=== PATIENT | female | born 1995 | race Caucasian/White ===

== ENCOUNTER 2017-02-27 16:05 | Outpatient (CLI) | payer MEDICAID ==
[~2017-02-27] VITALS: Ht 172.7 cm; Wt 83.2 kg
[~2017-02-27 16:05] MED LIST: CEFD300C37 PO; PNV11TAB PO
[2017-02-27 16:25] VITALS: BP 121/65
== END 2017-02-27 17:20 | disposition home or self-care (01) ==
LOC: LDOP 16:05
PROVIDERS: ATTEND Obstetrics & Gynecology
DX: O26.892 Other specified pregnancy related conditions, second trimester (principal); R10.9 Unspecified abdominal pain; Z3A.26 26 weeks gestation of pregnancy
CPT/HCPCS: 59025; 99211; G0463

== ENCOUNTER 2017-11-16 19:51 | Emergency (ER) | payer MEDICAID ==
[~2017-11-16] VITALS: Ht 172.7 cm; Wt 89.6 kg
[2017-11-16 20:00] VITALS: BP 137/88
[2017-11-16 21:01] LABS: BASOPHILS # (AUTO) 0.08 x10^3/uL (0-0.3); BASOPHILS % (AUTO) 1 % (0-1); EOSINOPHILS # (AUTO) 0.11 x10^3/uL (0-0.8); EOSINOPHILS % (AUTO) 1 % (1-7); LYMPHOCYTES # (AUTO) 3.07 x10^3/uL (1-6.1); LYMPHOCYTES % (AUTO) 35 % (22-44); MD NO; MEAN CORPUSCULAR HEMOGLOBIN 28.8 pg (27.0-34.8); MEAN CORPUSCULAR HGB CONC 32.6 g/dL (32.4-35.8); MEAN CORPUSCULAR VOLUME 88.3 fL (80-100); MEAN PLATELET VOLUME 7.8 fL (7.4-10.4); MONOCYTES # (AUTO) 0.61 x10^3/uL (0-1.4); MONOCYTES % (AUTO) 7 % (2-9); NEUTROPHILS # (AUTO) 4.85 x10^3/uL (1.8-8.0); NEUTROPHILS % (AUTO) 56 % (42-75); PLATELET COUNT 412 x10^3/uL (130-400); RED BLOOD COUNT 4.54 x10^6/uL (3.82-5.3); RED CELL DISTRIBUTION WIDTH 13.9 % (9.6-15.2)
[2017-11-16 21:12] LABS: ALANINE AMINOTRANSFERASE 16 U/L (12-78); ALBUMIN 3.5 g/dL (3.4-5.0); ANION GAP 7 mmol/L (5-15); CALCIUM 8.8 mg/dL (8.5-10.1); CHLORIDE 106 mmol/L (98-107); CREATININE 0.62 mg/dL (0.55-1.02)
[2017-11-16 21:17] LABS: ALKALINE PHOSPHATASE 53 U/L (45-117); BILIRUBIN,TOTAL 0.2 mg/dL (0.2-1.0); TOTAL PROTEIN 7.6 g/dL (6.4-8.2)
[2017-11-16 21:28] LABS: MICROSCOPIC NOT IND
[2017-11-16 21:33] LABS: CULTURE INDICATED? NO
[2017-11-16] MEDS ORDERED: KETOROLAC 30 MG/1 ML ONE (21:40)
[2017-11-16] MEDS ORDERED: ONDANSETRON ODT 4 MG ONE (21:40)
[2017-11-16] MEDS ORDERED: KETOROLAC 30 MG/1 ML IM ONE (22:00)
[2017-11-16] MEDS ORDERED: ONDANSETRON ODT 4 MG PO ONE (22:00)
== END 2017-11-16 22:28 | disposition home or self-care (01) ==
LOC: ED 21:50
DX: G44.219 Episodic tension-type headache, not intractable (principal); M54.5 Low back pain
CPT/HCPCS: 36415; 80053; 81003; 84703; 85025; 96372; 99284; J1885; Q0162

== ENCOUNTER 2018-03-31 15:18 | Emergency (ER) | payer MEDICAID ==
[~2018-03-31] VITALS: Ht 172.7 cm; Wt 96.5 kg
[2018-03-31 15:22] VITALS: BP 153/93
== END 2018-03-31 16:25 | disposition home or self-care (01) ==
LOC: ED 16:05
DX: S60.222A Contusion of left hand, initial encounter (principal); W22.01XA Walked into wall, initial encounter; Y93.89 Activity, other specified; Y92.098 Other place in other non-institutional residence as the place of occurrence of the external cause; Y99.8 Other external cause status
CPT/HCPCS: 99284

== ENCOUNTER 2018-07-01 16:28 | Emergency (ER) | payer MEDICAID ==
[~2018-07-01] VITALS: Ht 170.2 cm; Wt 96.6 kg
[2018-07-01 17:11] LABS: CULTURE INDICATED? YES; MICROSCOPIC INDICATED
[2018-07-01 18:03] VITALS: BP 122/64
== END 2018-07-01 18:05 | disposition home or self-care (01) ==
LOC: ED 17:32
DX: L24.5 Irritant contact dermatitis due to other chemical products (principal); B37.2 Candidiasis of skin and nail; L73.9 Follicular disorder, unspecified; G89.29 Other chronic pain
CPT/HCPCS: 81001; 87086; 87147; 99284

== ENCOUNTER 2018-10-19 12:56 | Emergency (ER) | payer MEDICAID ==
[~2018-10-19] VITALS: Ht 172.7 cm; Wt 98.7 kg
[2018-10-19 13:53] LABS: BASOPHILS # (AUTO) 0.04 x10^3/uL (0-0.1); BASOPHILS % (AUTO) 0 % (0-1); EOSINOPHILS # (AUTO) 0.29 x10^3/uL (0-0.4); EOSINOPHILS % (AUTO) 3 % (1-7); LYMPHOCYTES # (AUTO) 2.37 x10^3/uL (1-3.4); LYMPHOCYTES % (AUTO) 21 % (22-44); MD NO; MEAN CORPUSCULAR HEMOGLOBIN 29.9 pg (27.0-34.8); MEAN CORPUSCULAR HGB CONC 33.5 g/dL (32.4-35.8); MEAN CORPUSCULAR VOLUME 89.3 fL (80-100); MEAN PLATELET VOLUME 8.3 fL (7.4-10.4); MONOCYTES # (AUTO) 0.62 x10^3/uL (0.2-0.8); MONOCYTES % (AUTO) 6 % (2-9); NEUTROPHILS # (AUTO) 8.11 x10^3/uL (1.8-6.8); NEUTROPHILS % (AUTO) 71 % (42-75); PLATELET COUNT 365 x10^3/uL (130-400); RED BLOOD COUNT 4.52 x10^6/uL (3.82-5.3); RED CELL DISTRIBUTION WIDTH 14.6 % (9.6-15.2)
--- NOTE | 2018-10-19 13:59 | NUR ---
PT PRESENTS TO ED WITH C/O BILATERAL LOWER ABD PAIN WITH NAUSEA STARTING TODAY, LOWER BACK PAIN BILATERALLY X 2 DAYS. PT DENIES VAG BLEEDING/CRAMPING. PT REPORTS ODORLESS WHITE VAG DISCHARGE (SCANT), STATES SHE IS TAKING DEPO SHOT AND LAST PERIOD WAS "RIGHT BEFORE MY DEPO SHOT 09/23/18). URINE COLLECTED AND WALKED TO LAB. BP AND SPO2 MONITORS PLACED. WARM BLANKETS PROVIDED. NO VOMITING AT THIS TIME. AWAITING LAB, UA RESULTS AND DISPO.
[2018-10-19 14:02] LABS: ALBUMIN 3.5 g/dL (3.4-5.0); ANION GAP 5 mmol/L (5-15); CALCIUM 8.9 mg/dL (8.5-10.1); CHLORIDE 110 mmol/L (98-107)
[2018-10-19 14:07] LABS: ALANINE AMINOTRANSFERASE 18 U/L (12-78); ALKALINE PHOSPHATASE 79 U/L (45-117); BILIRUBIN,TOTAL 0.2 mg/dL (0.2-1.0); CREATININE 0.63 mg/dL (0.55-1.02); TOTAL PROTEIN 7.4 g/dL (6.4-8.2)
[2018-10-19 14:12] LABS: HCG UR SG 1.037 (1.003-1.030); MICROSCOPIC AUTO
[2018-10-19 14:13] LABS: CULTURE INDICATED? YES
[2018-10-19 15:26] VITALS: BP 121/73
--- NOTE | 2018-10-19 15:27 | NUR ---
PT GIVEN DC INSTRUCTIONS AND SCRIPTS. PT EDUCATED REGARDING DC MEDICATIONS WHICH ARE OMNICEF AND PYRIDIUM AT DC. PT AMB TO DC WITH STEADY GAIT. PT AOX4. RESPS EVEN AND UNLABORED. PT STATES THAT PAIN LEVEL REDUCED AT DC. NO ACUTE DISTRESS AT DC.
== END 2018-10-19 15:28 | disposition home or self-care (01) ==
LOC: ED 14:45
DX: N30.00 Acute cystitis without hematuria (principal); G44.209 Tension-type headache, unspecified, not intractable; F17.200 Nicotine dependence, unspecified, uncomplicated; Z87.2 Personal history of diseases of the skin and subcutaneous tissue
CPT/HCPCS: 36415; 74176; 80053; 81001; 81025; 83605; 83690; 85025; 87086; 99284

== ENCOUNTER 2019-12-19 19:02 | Emergency (ER) | payer MEDICAID ==
[~2019-12-19] VITALS: Ht 170.2 cm; Wt 89.5 kg
--- NOTE | 2019-12-19 19:43 | NUR ---
PT TO ROOM 25 PER PEDIS. PT C/O LIGHTHEADEDNESS WITHOUT THE DIZZINESS. PT STATES "THIS HAS BEEN GOING ON SINCE MONDAY NIGHT." SYMPTOMS GET WORSE WITH BENDING OR MOVING HEAD, AND BETTER IF JUST BEING STILL. 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 PT DOES USE MARIJUANA DAILY, AND IT MAKES SYMPTOMS WORSE. DR. 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 ORDERS RECEIVED. PT UP TO BR, URINE OBTAINED AND SENT. TECHS READY TO DO EKG. PT IN GOWN, PLACED ON MONITOR, OFFERED A WARM BLANKET (SHE DENIED), AND GIVEN CALL LIGHT WITH INSTRUCTIONS.
[2019-12-19] MEDS ORDERED: MECLIZINE CHEWABLE 25 MG TAB ONE (19:57)
[2019-12-19] MEDS ORDERED: MECLIZINE CHEWABLE 25 MG TAB PO ONE (20:00)
--- NOTE | 2019-12-19 20:15 | NUR ---
PT GIVEN PO ANTIVERT WITHOUT DIFF. WILL CONTINUE TO MONITOR PATIENT.
[2019-12-19 20:21] LABS: HCG UR SG 1.016 (1.003-1.030)
--- NOTE | 2019-12-19 21:40 | NUR ---
PT INFORMED THAT MD WOULD LIKE HER TO GET UP AND WALK TO SEE IF HER SYMPTOMS HAVE GONE AWAY. PT UP WITH RN.
--- NOTE | 2019-12-19 22:14 | NUR ---
AMBULATION TEST SUCCESSFUL. PT STATES "I FEEL BETTER" ORDERS HAVE BEEN PLACED FOR DC.
[2019-12-19 22:31] VITALS: BP 116/79
--- NOTE | 2019-12-19 22:36 | NUR ---
DISCHARGE INSTRUCTIONS GIVEN TO PATIENT WITH ONE PRESCRIPTION. PT INFORMED ABOUT MEDICATION AGAIN, AND INFORMED WHEN SHE IS ABLE TO TAKE NEXT DOSE. PT VERBALIZES UNDERSTANDING OF ALL INSTRUCTIONS, FOLLOW UP AND MEDICATIONS. PT AMBULATED OUT OF ED PER PEDIS.
== END 2019-12-19 22:40 | disposition home or self-care (01) ==
LOC: ED 22:15
DX: R42 Dizziness and giddiness (principal); R51 Headache; H93.19 Tinnitus, unspecified ear; R94.31 Abnormal electrocardiogram [ECG] [EKG]; F17.200 Nicotine dependence, unspecified, uncomplicated
CPT/HCPCS: 81025; 93005; 99285

== ENCOUNTER 2020-04-20 09:56 | Emergency (ER) | payer MEDICAID ==
[~2020-04-20] VITALS: Ht 170.2 cm; Wt 98.7 kg
[2020-04-20] MEDS ORDERED: SODIUM CHLORIDE 0.9% 1,000ML IVBOLUS ONE (10:30)
[2020-04-20] MEDS ORDERED: ONDANSETRON 2MG/ML, 2ML IVPush ONE (10:30)
[2020-04-20] MEDS ORDERED: SODIUM CHLORIDE FLUSH 10ML SYR IVF ONE (10:30)
[2020-04-20] MEDS ORDERED: HYDROmorphone 1 MG/ML, 1ML INJ ONE (10:38)
[2020-04-20] MEDS ORDERED: ONDANSETRON 2MG/ML, 2ML ONE ×2 (10:38→15:02)
[2020-04-20 10:49] LABS: MICROSCOPIC NOT IND
[2020-04-20] MEDS: HYDROmorphone 2 MG/ML, 1ML IVPush PRN ×2 (10:56→11:39)
[2020-04-20 11:05] LABS: BASOPHILS # (AUTO) 0.07 x10^3/uL (0-0.1); BASOPHILS % (AUTO) 1 % (0-1); EOSINOPHILS # (AUTO) 0.09 x10^3/uL (0-0.4); EOSINOPHILS % (AUTO) 1 % (1-7); LYMPHOCYTES # (AUTO) 1.57 x10^3/uL (1-3.4); LYMPHOCYTES % (AUTO) 10 % (22-44); MD NO; MEAN CORPUSCULAR HEMOGLOBIN 30.9 pg (27.0-34.8); MEAN CORPUSCULAR HGB CONC 33.9 g/dL (32.4-35.8); MEAN PLATELET VOLUME 7.7 fL (7.4-10.4); MONOCYTES # (AUTO) 0.71 x10^3/uL (0.2-0.8); MONOCYTES % (AUTO) 5 % (2-9); NEUTROPHILS # (AUTO) 13.09 x10^3/uL (1.8-6.8); NEUTROPHILS % (AUTO) 84 % (42-75); PLATELET COUNT 376 x10^3/uL (130-400); RED BLOOD COUNT 4.91 x10^6/uL (3.82-5.3); RED CELL DISTRIBUTION WIDTH 12.8 % (9.6-15.2)
[2020-04-20 11:18] LABS: ALANINE AMINOTRANSFERASE 20 U/L (12-78); ALBUMIN 4.2 g/dL (3.4-5.0); ANION GAP 5 mmol/L (5-15); CALCIUM 9.4 mg/dL (8.5-10.1); CHLORIDE 108 mmol/L (98-107)
[2020-04-20 11:23] LABS: ALKALINE PHOSPHATASE 66 U/L (45-117); BILIRUBIN,TOTAL 0.4 mg/dL (0.2-1.0); TOTAL PROTEIN 8.1 g/dL (6.4-8.2)
[2020-04-20] MEDS ORDERED: OMNIPAQUE 350 MG/ML, 100ML BOTTLE ONE (12:24)
[2020-04-20] MEDS ORDERED: CEFOTETAN PMX 1GM/50ML 50 ML ONE (13:30)
[2020-04-20] MEDS ORDERED: CEFOTETAN PMX 1GM/50ML 50 ML IV ONE (13:30)
[2020-04-20 13:45] VITALS: BP 111/79
[2020-04-20] MEDS ORDERED: MIDAZOLAM 1 MG/ML, 2ML ONE (14:18)
[2020-04-20] MEDS ORDERED: FENTANYL PF 250 MCG/5ML ONE ×2 (14:19→16:24)
[2020-04-20] MEDS ORDERED: KETOROLAC 30 MG/1 ML ONE (14:21)
[2020-04-20] MEDS ORDERED: BUPIVACAINE/PF-EPI 0.5% 1:200K ONE (14:25)
[2020-04-20] MEDS ORDERED: MEPERIDINE/PF 25MG/0.5ML IVPush PRN (14:30)
[2020-04-20] MEDS ORDERED: morphine SULFATE 10 MG/ML, 1ML IVPush PRN (14:30)
[2020-04-20] MEDS ORDERED: OXYcodone 5 MG/5 ML ORAL.SOL UDC PO PRN (14:30)
[2020-04-20] MEDS ORDERED: FENTANYL PF 100 MCG/2ML IV PRN (14:30)
[2020-04-20] MEDS ORDERED: hydrALAzine 20 MG/ML, 1ML IV PRN (14:30)
[2020-04-20] MEDS ORDERED: LABETALOL 5MG/ML, 20ML IV PRN (14:30)
[2020-04-20] MEDS ORDERED: CHLORHEXIDINE 15 ML UDC MM ONE (14:30)
[2020-04-20] MEDS ORDERED: HALOPERIDOL 5 MG/ML IV PRN (14:30)
[2020-04-20] MEDS ORDERED: HYDROmorphone 1 MG/ML, 1ML INJ IV ONE (14:30)
[2020-04-20] MEDS ORDERED: ACETAMINOPHEN 325 MG TABLET PO PRN (14:30)
[2020-04-20] MEDS ORDERED: PROMETHAZINE 25 MG/ML, 1ML IVPush PRN (14:30)
[2020-04-20] MEDS ORDERED: HYDROmorphone 1 MG/ML, 1ML INJ IVPush PRN (14:30)
[2020-04-20] MEDS ORDERED: CEFOTETAN PMX 2GM/50ML 50 ML ONE (14:31)
[2020-04-20] MEDS ORDERED: DEXAMETHASONE 4 MG/ML, 1ML ONE (15:02)
[2020-04-20] MEDS ORDERED: ROCURONIUM 10MG/ML,5ML ONE (15:02)
[2020-04-20] MEDS ORDERED: PROPOFOL 10 MG/ML, 20ML ONE (15:02)
[2020-04-20] MEDS ORDERED: GLYCOPYRROLATE 0.2MG/1ML, 5ML ONE (15:02)
[2020-04-20] MEDS ORDERED: SUCCINYLCHOLINE 20 MG/ML, 10ML ONE (15:02)
[2020-04-20] MEDS ORDERED: NEOSTIGMINE 1 MG/ML, 10ML ONE (15:02)
[2020-04-20] MEDS ORDERED: MEPERIDINE/PF 25MG/ML,1ML ONE (16:57)
== END 2020-04-20 17:31 ==
LOC: ED 10:11 → UNDOADMOB 12:41 → EDIP 12:41 → ED 17:31
DX: Z03.818 Encounter for observation for suspected exposure to other biological agents ruled out (principal); K35.80 Unspecified acute appendicitis; R10.84 Generalized abdominal pain; R11.2 Nausea with vomiting, unspecified
CPT/HCPCS: 36415; 44970; 74021; 74177; 76830; 80053; 81003; 83690; 84703; 85025; 87635; 88304; 96361; 96365; 96375; 96376; 99152; 99153; 99285; J0330; J1100; J1170; J1885; J2175; J2250; J2405; J2704; J2710; J3010; J3490; J7030; Q9967

== ENCOUNTER 2021-03-16 19:31 | Emergency (ER) | payer MEDICAID ==
[~2021-03-16] VITALS: Ht 170.2 cm; Wt 104.7 kg
--- NOTE | 2021-03-16 20:47 | NUR ---
PT CAME IN CO LLQ ABD PAIN THAT STARTED ABOUT 2 DAYS AGO. "SHARP PAIN". PT SAYS SHE HAS HX OF UTIS BUT THIS FEELS DIFFERENT. PT RESTING IN [facility]. UA SENT. AWAITING
[2021-03-16 20:59] LABS: MICROSCOPIC NOT IND
[2021-03-16 21:06] LABS: BASOPHILS % (AUTO) 1 % (0-1); EOSINOPHILS % (AUTO) 1 % (1-7); LYMPHOCYTES % (AUTO) 28 % (22-44); MEAN CORPUSCULAR HEMOGLOBIN 30.2 pg (27.0-34.8); MEAN CORPUSCULAR HGB CONC 33.8 g/dL (32.4-35.8); MEAN PLATELET VOLUME 8.2 fL (7.4-10.4); MONOCYTES % (AUTO) 8 % (2-9); NEUTROPHILS % (AUTO) 62 % (42-75); PLATELET COUNT 368 x10^3/uL (130-400); RED BLOOD COUNT 4.61 x10^6/uL (3.82-5.3); RED CELL DISTRIBUTION WIDTH 13.4 % (9.6-15.2)
[2021-03-16 21:11] LABS: ALBUMIN 3.9 g/dL (3.4-5.0); ANION GAP 6 mmol/L (5-15); CALCIUM 9.1 mg/dL (8.5-10.1); CHLORIDE 107 mmol/L (98-107); CREATININE 0.51 mg/dL (0.55-1.02)
[2021-03-16 21:40] VITALS: BP 127/83
--- NOTE | 2021-03-16 21:40 | NUR ---
bedside for recheck
== END 2021-03-16 21:56 | disposition home or self-care (01) ==
LOC: ED 21:31
DX: S60.221A Contusion of right hand, initial encounter (principal); R10.33 Periumbilical pain; G89.29 Other chronic pain; Z90.89 Acquired absence of other organs; Z87.891 Personal history of nicotine dependence; W22.8XXA Striking against or struck by other objects, initial encounter; Y93.89 Activity, other specified; Y92.89 Other specified places as the place of occurrence of the external cause; Y99.8 Other external cause status
CPT/HCPCS: 36415; 80048; 81003; 82040; 84703; 85025; 87491; 87591; 99284

== ENCOUNTER 2021-03-23 09:52 | Emergency (ER) | payer MEDICAID ==
[~2021-03-23] VITALS: Ht 170.2 cm; Wt 104.2 kg
[2021-03-23] MEDS ORDERED: PLEASE ENTER HEIGHT AND WEIGHT MC SCH (10:30)
[2021-03-23 10:39] LABS: BASOPHILS % (AUTO) 1 % (0-1); EOSINOPHILS % (AUTO) 0 % (1-7); LYMPHOCYTES % (AUTO) 23 % (22-44); MEAN CORPUSCULAR HEMOGLOBIN 30.6 pg (27.0-34.8); MEAN CORPUSCULAR HGB CONC 34.1 g/dL (32.4-35.8); MEAN PLATELET VOLUME 8.1 fL (7.4-10.4); MONOCYTES % (AUTO) 7 % (2-9); NEUTROPHILS % (AUTO) 70 % (42-75); PLATELET COUNT 370 x10^3/uL (130-400); RED BLOOD COUNT 4.75 x10^6/uL (3.82-5.3); RED CELL DISTRIBUTION WIDTH 13.1 % (9.6-15.2)
[2021-03-23 10:50] LABS: ALANINE AMINOTRANSFERASE 16 U/L (12-78); ALBUMIN 3.8 g/dL (3.4-5.0); ANION GAP 7 mmol/L (5-15); CALCIUM 9.7 mg/dL (8.5-10.1); CHLORIDE 108 mmol/L (98-107); CREATININE 0.59 mg/dL (0.55-1.02)
--- NOTE | 2021-03-23 10:54 | NUR ---
independent marketing consultant: attempted to move pt from lobby to room, no answer in lobby
[2021-03-23 10:55] LABS: ALKALINE PHOSPHATASE 64 U/L (45-117); BILIRUBIN,TOTAL 0.4 mg/dL (0.2-1.0); TOTAL PROTEIN 7.8 g/dL (6.4-8.2)
[2021-03-23] MEDS ORDERED: ONDANSETRON 2MG/ML, 2ML IVPush ONE (11:00)
--- NOTE | 2021-03-23 11:12 | NUR ---
shoder filler: attempted to move pt from lobby to room, no answer in lobby
--- NOTE | 2021-03-23 11:21 | NUR ---
budget accountant: pt returned from RAD, to room 22
[2021-03-23] MEDS ORDERED: ONDANSETRON 2MG/ML, 2ML ONE (11:26)
[2021-03-23] MEDS ORDERED: SODIUM CHLORIDE FLUSH 10ML SYR IVF ONE (11:30)
[2021-03-23 11:55] LABS: MICROSCOPIC NOT IND
--- NOTE | 2021-03-23 11:58 | NUR ---
PT BIB SELF VIA POV FOR COMPLAINT OF LOWER BILAT ABD QUADRANT PAIN THAT MOVES UP TO UPPER RIGHT QUADRANT AND RIGHT FLANK PAIN. PT WAS SEEN HERE APPROX 10 DAYS AGO AND ALSO SEEN AT PCP'S OFFICE ON MONDAY. PT STATES SHE HAD CT AND BLOOD WORK DONE AND WAS SUPPOSED TO HAVE AN US DONE LATER THIS WEEK, BUT THE PAIN HAS GOTTEN TOO BAD FOR HER TO WAIT. PT STATES SHE HAS NAUSEA BUT NO VOMITTING. STATES NO TROUBLE URINATING. PT RESTING IN [facility], MONITORING IN PLACE, MEDICATED PER EMAR, PIV PLACE, NADN AT THIS TIME, PER PT NO NEEDS, WCTM.
[2021-03-23 14:34] VITALS: BP 135/75
== END 2021-03-23 14:36 | disposition home or self-care (01) ==
LOC: ED 14:13
DX: N83.292 Other ovarian cyst, left side (principal); Z90.89 Acquired absence of other organs
CPT/HCPCS: 36415; 76700; 76830; 80053; 81003; 83690; 84703; 85025; 96374; 99285; J2405